=== PATIENT | male | born 1950 | race Caucasian/White ===

== ENCOUNTER 2021-03-12 02:43 | Emergency (ER) | payer MEDICARE, OTHER ==
[~2021-03-12] VITALS: Ht 182.8 cm; Wt 84.3 kg
--- NOTE | 2021-03-12 02:56 | ED EENT ---
History of Present Illness General Chief Complaint: Nasal Problems Stated Complaint: NOSE BLEED History of Present Illness Date Seen by Provider: Mar 12, 2021 Time Seen by Provider: 02:52 Initial Comments 70-year-old male presents with a nosebleed out of the left nare. Started approximately 20 minutes prior to arrival. Patient is not on any blood thinners. Patient does drink alcohol daily. Patient has been unable to get it to stop Allergies and Home Medications Allergies Coded Allergies: No Known Drug Allergies (Unverified , 03/12/21) Patient Home Medication List Home Medication List Reviewed: Yes Review of Systems Review of Systems Constitutional: no symptoms reported Eyes: No Symptoms Reported Nose: see HPI, epistaxis Mouth: no symptoms reported Throat: no symptoms reported Respiratory: no symptoms reported Cardiovascular: no symptoms reported Gastrointestinal: no symptoms reported Musculoskeletal: no symptoms reported Physical Exam Vital Signs Vital Signs - First Documented 03/12/21 02:50 Temp 35.8 Pulse 110 Resp 24 B/P (MAP) 170/100 (123) Pulse Ox 96 O2 Delivery Room Air Height, Weight, BMI Height: '" Weight: lbs. oz. kg; BMI Method: General Appearance: WD/WN, mild distress Nose: active bleeding (Left nare) Cardiovascular: normal peripheral pulses, regular rate, rhythm Respiratory: no respiratory distress, no accessory muscle use; No respiratory distress Gastrointestinal: non tender, soft Neurologic/Psychiatric: alert, normal mood/affect, oriented x 3 Skin: normal color, warm/dry Procedures/Interventions Nasal : Nasal Location: Left Nasal Drops Instilled: Afrin Nasal Procedures: Rapid Rhino Progress pt tolerated with no immediate complications Progress/Results/Core Measures Results/Orders My Orders Orders - SITA JIMÉNEZ DO Oxymetazoline 0.05% Nasal [place] (Afrin 0. (03/12/21 09:00) Oxymetazoline 0.05% Nasal [place] (Afrin 0. (03/12/21 03:01) Vital Signs/I&O 03/12/21 03/12/21 02:50 04:26 Temp 35.8 35.8 Pulse 110 96 Resp 24 16 B/P (MAP) 170/100 (123) 178/86 Pulse Ox 96 96 O2 Delivery Room Air Room Air Progress Progress Note : Progress Note Initially tried direct pressure and Afrin. Patient would have temporary ceasing of his epistasis. However with much movement or throat clearing it would restart. A Rhino Rocket was then placed. He should return to the ER on Saturday or follow-up with a primary care provider on Saturday to have the Rhino Rocket removed. Patient was stable upon discharge Departure Impression Primary Impression: Epistaxis Disposition: 01 HOME, SELF-CARE Condition: Stable Departure-Patient Inst. Referrals: NO,LOCAL PHYSICIAN (PCP/Family) Primary Care Physician Patient Instructions: Nosebleeds (DC) SITA JIMÉNEZ DO Mar 12, 2021 02:56
[2021-03-12] MEDS ORDERED: OXYMETAZOLINE (AFRIN) 0.05% NA 30 ML BTL ONE (03:01)
[2021-03-12 04:26] VITALS: BP 178/86
[2021-03-12] MEDS ORDERED: OXYMETAZOLINE (AFRIN) 0.05% NA 30 ML BTL SCH (09:00)
== END 2021-03-12 04:26 | disposition home or self-care (01) ==
LOC: ER FS 02:47
DX: R04.0 Epistaxis (principal)
CPT/HCPCS: 30901

== ENCOUNTER 2021-03-14 13:33 | Day surgery (SDC) | payer MEDICARE, OTHER ==
[2021-03-14] VITALS (7 sets, daily range): BP systolic 129–178; BP diastolic 72–97
[~2021-03-14] VITALS: Ht 182.9 cm; Wt 84.4 kg
[2021-03-14] MEDS ORDERED: LISI20TA26 PO (14:12)
[2021-03-14] MEDS ORDERED: HYDR12.56 PO (14:12)
[2021-03-14] MEDS ORDERED: DOXY50CA2 PO (14:12)
[2021-03-14 14:14] LABS: BASOPHILS % (AUTO) 1 % (0-10); EOSINOPHILS # (AUTO) 0.1 10^3/uL (0.0-0.3); EOSINOPHILS % (AUTO) 2 % (0-10); HEMATOCRIT 45 % (40-54); HEMOGLOBIN 15.4 g/dL (13.3-17.7); LYMPHOCYTES # (AUTO) 1.4 10^3/uL (1.0-4.0); LYMPHOCYTES % (AUTO) 16 % (12-44); MEAN CORPUSCULAR HEMOGLOBIN 34 pg (25-34); MEAN CORPUSCULAR HGB CONC 35 g/dL (32-36); MEAN CORPUSCULAR VOLUME 99 fL (80-99); MEAN PLATELET VOLUME 10.5 fL (9.0-12.2); MONOCYTES # (AUTO) 0.8 10^3/uL (0.0-1.0); MONOCYTES % (AUTO) 9 % (0-12); NEUTROPHILS # (AUTO) 6.2 10^3/uL (1.8-7.8); NEUTROPHILS % (AUTO) 72 % (42-75); PLATELET COUNT 219 10^3/uL (130-400); WHITE BLOOD COUNT 8.6 10^3/uL (4.3-11.0)
[2021-03-14 14:30] LABS: CALCIUM 9.8 MG/DL (8.5-10.1); CREATININE SERUM 1.44 MG/DL (0.60-1.30); POTASSIUM 4.1 MMOL/L (3.6-5.0)
[2021-03-14] MEDS ORDERED: fentaNYL INJ 100 MCG/2 ML AMP ONE (15:30)
[2021-03-14] MEDS ORDERED: proPOfol 200 MG/20 ML (DIPRIVAN) VIAL IV ONE (15:30)
[2021-03-14] MEDS ORDERED: ROCURONIUM 10 MG/ML 5 ML SYRINGE IV ONE (15:30)
[2021-03-14] MEDS ORDERED: SUCCINYLCHOLINE INJ 100 MG/5 ML SYR/VIAL ONE (15:30)
[2021-03-14] MEDS ORDERED: LIDOCAINE PF 2% 5 ML (XYLOCAINE) VIAL ONE (15:30)
[2021-03-14] MEDS ORDERED: ONDANSETRON 4 MG/2 ML (SDV) Z0FRAN ONE ×2 (15:30→17:49)
[2021-03-14] MEDS ORDERED: MIDAZOLAM 2 MG/2 ML (VERSED) VIAL ONE (15:31)
[2021-03-14] MEDS ORDERED: COCAINE HCL 4% 2 ML SYR ONE (15:38)
[2021-03-14] MEDS ORDERED: MUPIROCIN 2% OINT 22 GM (BACTROBAN) TUBE ONE (15:39)
[2021-03-14] MEDS ORDERED: LIDOCAINE/EPI 1%-1:100,000 (XYLOCAINE) 20ML ONE (15:39)
[2021-03-14] MEDS ORDERED: PHENYLEPHRINE 0.5% NASAL SPR (NEO-SYNEPHRINE) REG ONE (15:39)
[2021-03-14] MEDS ORDERED: LACTATED RINGERS 1,000 ML IV PRN (16:00)
--- NOTE | 2021-03-14 17:05 | Progress Note-Pre Operative ---
Pre-Operative Progress Note H&P Reviewed The H&P was reviewed, patient examined and no changes noted. Date Seen by Provider: Mar 14, 2021 Time Seen by Provider: 17:00 Date H&P Reviewed: Mar 14, 2021 Time H&P Reviewed: 17:00 Pre-Operative Diagnosis: Left Posterior Epistaxis HUNG SHEPHERD MD Mar 14, 2021 17:05
[2021-03-14] MEDS ORDERED: morphine INJ 10 MG/ML 1ML (SYR OR VIAL) ONE (17:49)
[2021-03-14] MEDS ORDERED: HYDROmorphone 2 MG/ML VIAL (DILAUDID) ONE (17:49)
[2021-03-14] MEDS ORDERED: PHENYLEPHRINE 100 MCG/ML 10 ML (ANESTHESIA) SYR ONE (18:06)
[2021-03-14] MEDS ORDERED: SEVOFLURANE (ULTANE) 15 ML INHAL SOLN ONE (18:16)
--- NOTE | 2021-03-14 18:33 | Anesthesia-General Post-Op ---
General Patient Condition Mental Status/LOC: Same as Preop Cardiovascular: Satisfactory Nausea/Vomiting: Absent Respiratory: Satisfactory Pain: Controlled Complications: Absent Post Op Complications Complications None Follow Up Care/Instructions Patient Instructions None needed. Anesthesia/Patient Condition Patient Condition Patient is doing well, no complaints, stable vital signs, no apparent adverse anesthesia problems. No complications reported per nursing. LUIS MANUEL WATKINS CRNA Mar 14, 2021 18:33
[2021-03-14] MEDS ORDERED: MEPERIDINE (DEMEROL) INJ 50 MG/ML IVP ONE (18:45)
[2021-03-14] MEDS ORDERED: D5 1/2 NS W/KCL 20 MEQ/L 1,000 ML IV SCH (18:45)
[2021-03-14] MEDS ORDERED: morphine INJ 10 MG/ML 1ML (SYR OR VIAL) IVP ONE (18:45)
[2021-03-14] MEDS ORDERED: PROMETHAZINE INJ 25 MG/ML (PHENERGAN) AMP IVP ONE (18:45)
[2021-03-14] MEDS ORDERED: HYDROmorphone 2 MG/ML VIAL (DILAUDID) IV ONE (18:45)
[2021-03-14] MEDS ORDERED: ONDANSETRON 4 MG/2 ML (SDV) Z0FRAN IVP PRN (18:45)
[2021-03-14] MEDS ORDERED: PHENYLEPHRINE 0.5% NASAL SPR (NEO-SYNEPHRINE) REG PRN (18:45)
--- NOTE | 2021-03-14 18:45 | Progress Note-Post Operative ---
Post-Operative Progess Note Surgeon (s)/Hat Measurer (s) Surgeon HUNG SHEPHERD MD Hat Measurer n/a Pre-Operative Diagnosis Left Posterior Epistaxis Post-Operative Diagnosis same Post-Op Procedure Note Date of Procedure: Mar 14, 2021 Name of Procedure Performed: Endoscopic Repair of Left Posterior Epistaxis Description & Findings Description and Findings: n/a Anesthesia Type get Estimated Blood Loss minimal Packing none. Specimen(s) collected/removed none HUNG SHEPHERD MD Mar 14, 2021 18:45
[2021-03-14] MEDS ORDERED: HYDROcodone/APAP 5 MG/325 MG (LORTAB) TAB PO PRN (19:00)
== END 2021-03-14 21:03 | disposition home or self-care (01) ==
LOC: SDC 13:33
PROVIDERS: ATTEND Otolaryngology Otolaryngology/Facial Plastic Surgery
DX: R04.0 Epistaxis (principal)
CPT/HCPCS: 36415; 80048; 85025; 87081; 87636

== ENCOUNTER 2021-03-15 03:22 | Day surgery (SDC) | payer MEDICARE, OTHER ==
[2021-03-15] VITALS (12 sets, daily range): BP systolic 139–178; BP diastolic 73–85
[~2021-03-15] VITALS: Ht 182.9 cm; Wt 80.7 kg
[~2021-03-15 03:22] MED LIST: DOXY50CA2 PO; HYDR12.56 PO; LISI20TA26 PO
[2021-03-15] MEDS ORDERED: CATHETER FLUSH 10 ML SYR IV PRN (05:00)
[2021-03-15] MEDS ORDERED: HYDROcodone/APAP 5 MG/325 MG (LORTAB) TAB PO PRN (05:15)
[2021-03-15] MEDS ORDERED: SALINE NASAL SPRAY (OCEAN) 45 ML BTL PRN (05:15)
[2021-03-15] MEDS ORDERED: PATIENT MAY USE OWN MEDS, ALL MC SCH (05:15)
[2021-03-15] MEDS ORDERED: ACETAMINOPHEN 325 MG TABLET PO PRN (05:15)
[2021-03-15] MEDS: CATHETER FLUSH 10 ML SYR IV SCH ×3 (05:20→20:00)
[2021-03-15] MEDS ORDERED: COCAINE HCL 4% 2 ML SYR ONE (07:02)
[2021-03-15] MEDS ORDERED: PHENYLEPHRINE 0.5% NASAL SPR (NEO-SYNEPHRINE) REG ONE (07:03)
[2021-03-15] MEDS ORDERED: MUPIROCIN 2% OINT 22 GM (BACTROBAN) TUBE ONE (07:03)
[2021-03-15] MEDS ORDERED: LIDOCAINE/EPI 1%-1:100,000 (XYLOCAINE) 20ML ONE (07:03)
[2021-03-15] MEDS ORDERED: SEVOFLURANE (ULTANE) 15 ML INHAL SOLN ONE ×2 (07:13→07:48)
[2021-03-15] MEDS ORDERED: MIDAZOLAM 2 MG/2 ML (VERSED) VIAL ONE (07:13)
[2021-03-15] MEDS ORDERED: proPOfol 200 MG/20 ML (DIPRIVAN) VIAL IV ONE (07:13)
[2021-03-15] MEDS ORDERED: LIDOCAINE PF 2% 5 ML (XYLOCAINE) VIAL ONE (07:13)
[2021-03-15] MEDS ORDERED: ONDANSETRON 4 MG/2 ML (SDV) Z0FRAN ONE (07:13)
[2021-03-15] MEDS ORDERED: fentaNYL INJ 100 MCG/2 ML AMP ONE (07:13)
--- NOTE | 2021-03-15 07:19 | Progress Note ---
Standard Progress Note Progress Notes/Assess & Plan Date Seen by a Provider: Mar 15, 2021 Time Seen by a Provider: 06:30 Progress/Assessment & Plan ENT-Rudi called to see patient had onset of bleeding around 620-birght red blood from high in the nose Nose-suctioned of clot and bright red blood-active bleeding seen high in the nose just anterior to the middle turbinate-hard to see in that area as he has a narrow nose- IMP: Recurrent Epistaxis Rec: 1. Patient has active bleeding. Only alternative is to take back to surgery whicle acitvely bleeding so hopefully can find the vessels to cauterize. OR has room availabel and will get him down as soon as possible whicle still bleeding 2. consent for repair of left epistaxis Final Diagnosis REcurrent Left Epistaxis HUNG SHEPHERD MD Mar 15, 2021 07:19
[2021-03-15] MEDS: LACTATED RINGERS 1,000 ML IV PRN ×2 (07:25→07:54)
[2021-03-15] MEDS ORDERED: ceFAZolin INJECTION 1,000 MG ONE (08:05)
[2021-03-15] MEDS ORDERED: PHENYLEPHRINE 100 MCG/ML 10 ML (ANESTHESIA) SYR ONE (08:10)
[2021-03-15] MEDS ORDERED: SUCCINYLCHOLINE INJ 100 MG/5 ML SYR/VIAL ONE (08:23)
[2021-03-15] MEDS ORDERED: morphine INJ 10 MG/ML 1ML (SYR OR VIAL) ONE (08:27)
[2021-03-15] MEDS ORDERED: MEPERIDINE (DEMEROL) INJ 50 MG/ML IVP ONE (08:30)
[2021-03-15] MEDS ORDERED: morphine INJ 10 MG/ML 1ML (SYR OR VIAL) IVP ONE (08:30)
[2021-03-15] MEDS ORDERED: fentaNYL INJ 100 MCG/2 ML AMP IVP ONE (08:30)
[2021-03-15] MEDS ORDERED: ONDANSETRON 4 MG/2 ML (SDV) Z0FRAN IVP PRN (08:30)
[2021-03-15] MEDS ORDERED: PHENYLEPHRINE 0.5% NASAL SPR (NEO-SYNEPHRINE) REG PRN (10:30)
[2021-03-15] MEDS: CEPHALEXIN 250 MG (KEFLEX) CAP PO SCH ×3 (11:37→19:59)
[2021-03-16 04:00] VITALS: BP 170/87
[2021-03-16] MEDS: CATHETER FLUSH 10 ML SYR IV SCH (06:49)
--- NOTE | 2021-03-16 06:55 | Progress Note ---
Standard Progress Note Progress Notes/Assess & Plan Date Seen by a Provider: Mar 16, 2021 Time Seen by a Provider: 06:30 Progress/Assessment & Plan ENT-Rudi called to see patient had onset of bleeding around 620-birght red blood from high in the nose Nose-suctioned of clot and bright red blood-active bleeding seen high in the nose just anterior to the middle turbinate-hard to see in that area as he has a narrow nose- IMP: Recurrent Epistaxis Rec: 1. Patient has active bleeding. Only alternative is to take back to surgery whicle acitvely bleeding so hopefully can find the vessels to cauterize. OR has room availabel and will get him down as soon as possible whicle still bleeding 2. consent for repair of left epistaxis 03/16-630 am patient doing well-no significnt bleeding since surgery gordon diet well mild to mod discomfort Nose-packing intact- op-no new or old blood seen will discharge around noon epistaxis discharge instructions patient already has prescriptions at home rtc-2 weeks in [facility] actvity restrictions discussed Final Diagnosis Recurrent Epistaxis HUNG SHEPHERD MD Mar 16, 2021 06:55
[2021-03-16 07:51] VITALS: BP 159/72
[2021-03-16] MEDS: CEPHALEXIN 250 MG (KEFLEX) CAP PO SCH (08:18)
[2021-03-16 12:20] VITALS: BP 159/72
--- NOTE | 2021-03-16 14:31 | Anesthesia-General Post-Op ---
General Patient Condition Mental Status/LOC: Same as Preop Cardiovascular: Satisfactory Nausea/Vomiting: Absent Respiratory: Satisfactory Pain: Controlled Complications: Absent Post Op Complications Complications None Follow Up Care/Instructions Patient Instructions None needed. Anesthesia/Patient Condition Patient Condition Patient is doing well, no complaints, stable vital signs, no apparent adverse anesthesia problems. No complications reported per nursing. JOSE DAVID SUMMERS CRNA Mar 16, 2021 14:31
== END 2021-03-16 12:40 | disposition other institution (70) ==
LOC: EDUNIT# 03:22 → ER 03:25 → UNDOADMIN 04:09 → INTOOBSV 04:09 → CSD 04:09 → SDC 04:09 → 4TH 04:09 → CSD 04:17 → 4TH 10:33 → CSD 10:33 → 4TH 10:33 → SDC 03-16 12:40 → UNDODISIN 03-16 12:40
PROVIDERS: ATTEND Otolaryngology Otolaryngology/Facial Plastic Surgery
DX: R04.0 Epistaxis (principal); I10 Essential (primary) hypertension; E11.9 Type 2 diabetes mellitus without complications; Z87.891 Personal history of nicotine dependence; Z79.899 Other long term (current) drug therapy; Z79.2 Long term (current) use of antibiotics
CPT/HCPCS: 93005

== ENCOUNTER → 2021-07-20 | Outpatient (CLI) | payer MEDICARE, OTHER ==
--- NOTE | 2021-07-20 09:58 | Diagnostic Imaging Report ---
INDICATION: Cough and congestion. TIME OF EXAM: 9:48 AM COMPARISON: No prior studies are available for comparison. FINDINGS: The heart size is normal. The lungs appear clear although there is a small nodule in the right base which appears to be fairly dense. This could be calcified. No infiltrates are detected. There is no effusion or pneumothorax IMPRESSION: Right basilar nodule, indeterminate. Correlation with prior chest radiographs would be recommended to confirm stability. If no prior chest radiographs are available, CT of the chest could be performed for further evaluation. Dictated by: Dictated on workstation # [id number]
== END ==
LOC: RAD FS 09:35
PROVIDERS: ATTEND Registered Nurse Emergency
DX: R91.1 Solitary pulmonary nodule (principal); R05.1 Acute cough; R09.81 Nasal congestion
CPT/HCPCS: 71046

== ENCOUNTER → 2021-07-24 | Outpatient (CLI) | payer MEDICARE, OTHER ==
[~2021-07-24] MED LIST changes: +CATHETER FLUSH 10 ML SYR IV PRN; +HOLD METFORMIN - RECEIVED CONTRAST 20 ML VIAL IV SCH; +IOHEXOL 350 MG/ML 150 ML (OMNIPAQUE 350) VIAL IV ONE; +NS 100 ML (IVPB) BAG IV ONE
[2021-07-24 09:23] LABS: CREATININE SERUM 1.06 MG/DL (0.60-1.30)
--- NOTE | 2021-07-24 10:22 | Diagnostic Imaging Report ---
PROCEDURE: CT chest with contrast only. TECHNIQUE: Multiple contiguous axial images were obtained through the chest after administration of intravenous contrast. Auto Exposure Controls were utilized during the CT exam to meet ALARA standards for radiation dose reduction. DATE: July 24, 2021. COMPARISON: July 20, 2021. INDICATION: 70-year-old male, evaluation of pulmonary nodule seen on radiographs. FINDINGS: There are mild upper lobe findings of emphysema. There is mild pleural parenchymal scarring in the lung apices. There is a calcified 6 mm right lower lobe granuloma on axial image 121 accounting for the nodule seen on radiographs. There are calcified right hilar lymph nodes consistent with sequela of prior granulomatous disease. There are very mild tree-in-bud type nodularity opacities in the left upper lobe on axial image 75 and adjacent sequential images. There is additional tree-in-bud nodularity present in the left lower lobe. There is no pneumothorax. There is no pleural effusion. The heart is not enlarged. There is no pericardial effusion. There is a calcified subcarinal lymph node. There is no identified noncalcified mediastinal, hilar, or axillary lymph node meeting CT size criteria for adenopathy. There is a small to moderate-sized hiatal hernia. There is wall thickening of the distal esophagus. This is best demonstrated on axial image 121 and adjacent sequential images. Additional evaluation of the abdomen is unremarkable. There are atherosclerotic calcifications present. There are multilevel degenerative changes of the spine. There is no identified acute bony abnormality. IMPRESSION: CT CHEST. 1. Calcified right lower lobe pulmonary nodule as well as calcified lymph nodes consistent with sequela of prior granulomatous disease. 2. No concerning pulmonary nodule or lung mass. 3. Mild upper lobe findings of emphysema. 4. Small to moderate-sized hiatal hernia with nonspecific wall thickening of the distal esophagus. Further evaluation with upper endoscopy is recommended. Esophageal cancer is in the differential diagnosis. Dictated by: Dictated on workstation # [id number]
== END ==
LOC: LAB FS 08:39
PROVIDERS: ATTEND Registered Nurse Emergency
DX: R91.1 Solitary pulmonary nodule (principal)
CPT/HCPCS: 36415; 71260; 82565; 84520

== ENCOUNTER 2021-09-04 23:44 | Emergency (ER) | payer MEDICARE, OTHER ==
[~2021-09-04 23:44] MED LIST changes: -CATHETER FLUSH 10 ML SYR IV PRN; -HOLD METFORMIN - RECEIVED CONTRAST 20 ML VIAL IV SCH; -IOHEXOL 350 MG/ML 150 ML (OMNIPAQUE 350) VIAL IV ONE; -NS 100 ML (IVPB) BAG IV ONE
--- NOTE | 2021-09-04 23:56 | ED Abdominal Pain ---
General Chief Complaint: Abdominal/GI Problems Stated Complaint: STOMACH PAIN Source of Information: Patient Exam Limitations: No Limitations History of Present Illness Date Seen by Provider: Sep 04, 2021 Time Seen by Provider: 23:50 Initial Comments 71-year-old male with past medical history of hypertension coming in due to epigastric pain that is sharp, constant, moderate to severe, and has been going on for roughly 2 days. Has not had a bowel movement in 2 days which is unusual for him. Is passing flatus. Had a very brief episode of nausea earlier today but has not had vomiting, and currently is not nauseous. Has never had discomfort like this before. There is a baseline level of pain and there are waves of more severe pain that lasts a couple minutes at a time. He says he does deal with burning pain that is more like GERD at times, but this feels somewhat different. Has had hernia repair prior but that is the only abdominal surgery in the past. He notes that he had bronchitis relatively recently within the past couple months and had a chest x-ray which showed a pulmonary nodule in his right lung. This prompted a CT scan which showed some esophageal thickening in his lower esophagus and a hiatal hernia. He says this is prompted that he has a an upper GI scope coming up soon. He tried Pepcid earlier which did not really change the pain at all. He says he came in because he was unable to fall asleep. Allergies and Home Medications Allergies Coded Allergies: No Known Drug Allergies (Unverified , 03/12/21) Patient Home Medication List Home Medication List Reviewed: Yes Doxycycline Hyclate (Doxycycline Hyclate) 50 Mg Capsule, 50 MG PO TOPEKA, (Reported) Entered as Reported by: CORRINE CHAN on 03/14/21 141 Hydrochlorothiazide (Hydrochlorothiazide) 12.5 Mg Tablet, 12.5 MG PO DAILY, (Reported) Entered as Reported by: CORRINE CHAN on 03/14/21 141 Lisinopril (Lisinopril) 20 Mg Tablet, 20 MG PO DAILY, (Reported) Entered as Reported by: CORRINE CHAN on 03/14/21 141 Pantoprazole Sodium (Pantoprazole Sodium) 40 Mg Tablet., 40 MG PO DAILY Prescribed by: VIVIAN LEE on 09/05/21 0116 Review of Systems Review of Systems Constitutional: No chills, No fever EENTM: No Blurred Vision Respiratory: Denies Cough, Denies Shortness of Air Cardiovascular: Denies Chest Pain Gastrointestinal: Abdominal Pain, Constipated; Denies Diarrhea, Denies Nausea, Denies Vomiting Genitourinary: No Symptoms Reported Musculoskeletal: no symptoms reported Skin: no symptoms reported Psychiatric/Neurological: No Symptoms Reported Endocrine: No Symptoms Reported Hematologic/Lymphatic: No Symptoms Reported All Other Systems Reviewed Negative Unless Noted: Yes Past Onemoyb-Gbkcph-Rugglb Hx Patient Social History Tobacco Use?: No Substance use?: No Alcohol Use?: Yes Immunizations Up To Date First/Initial COVID19 Vaccinat: 08/14/2020 Second COVID19 Vaccination Migel: 09/11/2020 Third COVID19 Vaccination Date: 08/14/2020 Seasonal Allergies Seasonal Allergies: No Past Medical History Surgery/Hospitalization HX: EPISTAXIS REPAIR 03/14/21 Surgeries: Yes (COLONOSCOPY, WISDOM TEETH) Abdominal Respiratory: No Currently Using CPAP: No Currently Using BIPAP: No Cardiac: Yes High Cholesterol, Hypertension Neurological: No Genitourinary: No Gastrointestinal: No Musculoskeletal: No Endocrine: No HEENT: No Cancer: No Psychosocial: No Integumentary: No Blood Disorders: No Adverse Reaction/Blood Tranf: No Physical Exam Vital Signs Vital Signs - First Documented 09/04/21 23:48 Temp 36.2 Pulse 76 Resp 18 B/P (MAP) 148/86 (106) Pulse Ox 97 O2 Delivery Room Air Capillary Refill : Height/Weight/BMI Height: '" Weight: lbs. oz. kg; 24.12 BMI Method: General Appearance: WD/WN, no apparent distress HEENT: PERRL/EOMI, normal ENT inspection, pharynx normal Neck: non-tender, full range of motion, supple, normal inspection Respiratory: chest non-tender, lungs clear, normal breath sounds, no respiratory distress, no accessory muscle use Cardiovascular: regular rate, rhythm, no edema, no murmur Gastrointestinal: normal bowel sounds, soft; No distended, No guarding, No rebound; tenderness (Mild epigastric tenderness) Extremities: normal range of motion, non-tender, normal inspection, no pedal edema, no calf tenderness, normal capillary refill Neurologic/Psychiatric: no motor/sensory deficits, alert, normal mood/affect Skin: normal color, warm/dry Lymphatic: no adenopathy Focused Exam Lactate Level 09/05/21 00:15: Lactic Acid Level 0.95 Lactic Acid Level Laboratory Tests Test 09/05/21 00:15 Lactic Acid Level 0.95 MMOL/L (0.50-2.00) Progress/Results/Core Measures Results/Orders Lab Results Laboratory Tests Test 09/05/21 00:15 Range/Units White Blood Count 9.7 4.3-11.0 10^3/uL Red Blood Count 4.80 4.30-5.52 10^6/uL Hemoglobin 15.7 13.3-17.7 g/dL Hematocrit 44 40-54 % Mean Corpuscular Volume 92 80-99 fL Mean Corpuscular Hemoglobin 33 25-34 pg Mean Corpuscular Hemoglobin Concent 35 32-36 g/dL Red Cell Distribution Width 13.3 10.0-14.5 % Platelet Count 184 130-400 10^3/uL Mean Platelet Volume 10.8 9.0-12.2 fL Immature Granulocyte % (Auto) 1 % Neutrophils (%) (Auto) 81 H 42-75 % Lymphocytes (%) (Auto) 10 L 12-44 % Monocytes (%) (Auto) 8 0-12 % Eosinophils (%) (Auto) 1 0-10 % Basophils (%) (Auto) 0 0-10 % Neutrophils # (Auto) 7.9 H 1.8-7.8 10^3/uL Lymphocytes # (Auto) 0.9 L 1.0-4.0 10^3/uL Monocytes # (Auto) 0.8 0.0-1.0 10^3/uL Eosinophils # (Auto) 0.1 0.0-0.3 10^3/uL Basophils # (Auto) 0.0 0.0-0.1 10^3/uL Immature Granulocyte # (Auto) 0.1 0.0-0.1 10^3/uL Prothrombin Time 13.3 12.2-14.7 SEC INR Comment 1.0 0.8-1.4 Activated Partial Thromboplast Time 44 H 24-35 SEC Sodium Level 131 L 135-145 MMOL/L Potassium Level 4.4 3.6-5.0 MMOL/L Chloride Level 97 L 98-107 MMOL/L Carbon Dioxide Level 21 21-32 MMOL/L Anion Gap 13 5-14 MMOL/L Blood Urea Nitrogen 26 H 7-18 MG/DL Creatinine 1.28 0.60-1.30 MG/DL Estimat Glomerular Filtration Rate 59 BUN/Creatinine Ratio 20 Glucose Level 196 H 70-105 MG/DL Lactic Acid Level 0.95 0.50-2.00 MMOL/L Calcium Level 9.3 8.5-10.1 MG/DL Corrected Calcium 9.1 8.5-10.1 MG/DL Magnesium Level 2.0 1.6-2.4 MG/DL Total Bilirubin 1.2 H 0.1-1.0 MG/DL Aspartate Amino Transf (AST/SGOT) 15 5-34 U/L Alanine Aminotransferase (ALT/SGPT) 15 0-55 U/L Alkaline Phosphatase 103 40-136 U/L Troponin I < 0.30 <0.30 NG/ML Total Protein 7.1 6.4-8.2 GM/DL Albumin 4.3 3.2-4.5 GM/DL Lipase 33 8-78 U/L My Orders Orders - VIVIAN LEE MD Cbc With Automated Diff (09/05/21 00:06) Comprehensive Metabolic Panel (09/05/21 00:06) Lactic Acid Analyzer (09/05/21 00:06) Lipase (09/05/21 00:06) Magnesium (09/05/21 00:06) Protime With Inr (09/05/21 00:06) Partial Thromboplastin Time (09/05/21 00:06) Troponin I Fs (09/05/21 00:06) Lidocaine 2% Viscous 15 Ml (Xylocaine Vi (09/05/21 00:15) Antacid Suspension (Mylanta Suspension (09/05/21 00:15) Famotidine Injection (Pepcid Injection) (09/05/21 00:06) Hyoscyamine Sl Tablet (Levsin Sl Tablet) (09/05/21 00:15) Ed Iv/Invasive Line Start (09/05/21 00:06) Ketorolac Injection (Toradol Injection) (09/05/21 01:00) Ct Abdomen/Pelvis W (09/05/21 00:58) Iohexol Injection (Omnipaque 350 Mg/Ml 1 (09/05/21 01:00) Received Contrast (Hold Metformin- Contr (09/05/21 01:00) Ns (Ivpb) (Sodium Chloride 0.9% Ivpb Bag (09/05/21 01:00) Medications Given in ED Current Medications Medications Dose Ordered Sig/Ramon Route Start Time Stop Time Status Last Admin Dose Admin Al Hydrox/Mg Hydrox/Simethicone 30 ml ONCE ONCE PO 09/05/21 00:15 09/05/21 00:16 DC 09/05/21 00:14 30 ML Hyoscyamine Sulfate 0.125 mg ONCE ONCE SL 09/05/21 00:15 09/05/21 00:16 DC 09/05/21 00:15 0.125 MG Iohexol 100 ml ONCE ONCE IV 09/05/21 01:00 09/05/21 01:01 DC 09/05/21 01:13 100 ML Lidocaine HCl 15 ml ONCE ONCE PO 09/05/21 00:15 09/05/21 00:16 DC 09/05/21 00:14 15 ML Sodium Chloride 100 ml ONCE ONCE IV 09/05/21 01:00 09/05/21 01:01 DC 09/05/21 01:14 100 ML Vital Signs/I&O 09/04/21 23:48 Temp 36.2 Pulse 76 Resp 18 B/P (MAP) 148/86 (106) Pulse Ox 97 O2 Delivery Room Air Progress Progress Note : Progress Note 71-year-old male with above history coming in due to epigastric pain. ABCs were intact and vitals were stable on presentation. Physical exam with some mild epigastric tenderness with deep palpation, but no signs of peritonitis. An IV was placed and basic labs were obtained including LFTs and lactic acid. Labs significant for normal white blood cell count, normal creatinine, normal electrolytes, normal LFTs other than a very slightly elevated bilirubin which is nonspecific, normal lactic acid making mesenteric ischemia less likely. Lipase is also normal making pancreatitis unlikely. On reassessment after the GI cocktail his pain has almost completely resolved which is reassuring. I discussed with the patient at his age having severe new abdominal pain is still a concern to me, and very well could just be esophagitis/gastritis, but that I would like to do advanced imaging to rule out other pathologies. CT abdomen pelvis ordered and does not have any new acute findings that would be concerning for his symptoms. I believe the patient is stable for discharge with outpatient follow-up. He does have an upper GI scope scheduled in less than a month which is reassuring. He was sent home with strict return precautions. Departure Impression Primary Impression: Epigastric abdominal pain Disposition: HOME, SELF-CARE Condition: Stable Departure-Patient Inst. Decision time for Depature: 02:14 Referrals: MARIO DEGROOT MD (PCP/Family) Primary Care Physician Patient Instructions: Severe Abdominal Pain, Adult (DC), Constipation, Adult (DC) Add. Discharge Instructions: I will start you on pantoprazole which is a strong antacid which can help with symptoms that you are experiencing. Try to take it for at least 2 weeks to see if you have improvement in your symptoms. If you have continued constipation yo u can try adding in MiraLAX which you can buy [id number]. When you having severe episodes of pain you can try taking Maalox max which is also [id number] and give that about an hour to do its job. Tylenol is a safe medication that causes less GI upset, ibuprofen, naproxen, aspirin can cause GI upset. Call your doctor if things are not significantly better in the next couple of days. Scripts Pantoprazole Sodium (Pantoprazole Sodium) 40 Mg Tablet. 40 MG PO DAILY for 30 Days, #30 TAB Prov: VIVIAN LEE MD 09/05/21 VIVIAN LEE MD Sep 04, 2021 23:56
[2021-09-05] MEDS ORDERED: FAMOTIDINE 20MG/2ML IV (PEPCID) IV STA (00:06)
[2021-09-05] MEDS ORDERED: LIDOCAINE 2% VISCOUS 15 ML UDC PO ONE (00:15)
[2021-09-05] MEDS ORDERED: HYOSCYAMINE 0.125 MG (LEVSIN) TAB SL ONE (00:15)
[2021-09-05] MEDS ORDERED: ANTACID SUSP 30 ML UDC (MYLANTA) PO ONE (00:15)
[2021-09-05 00:24] LABS: BASOPHILS % (AUTO) 0 % (0-10); EOSINOPHILS # (AUTO) 0.1 10^3/uL (0.0-0.3); EOSINOPHILS % (AUTO) 1 % (0-10); HEMATOCRIT 44 % (40-54); HEMOGLOBIN 15.7 g/dL (13.3-17.7); LYMPHOCYTES # (AUTO) 0.9 10^3/uL (1.0-4.0); LYMPHOCYTES % (AUTO) 10 % (12-44); MEAN CORPUSCULAR HEMOGLOBIN 33 pg (25-34); MEAN CORPUSCULAR HGB CONC 35 g/dL (32-36); MEAN CORPUSCULAR VOLUME 92 fL (80-99); MEAN PLATELET VOLUME 10.8 fL (9.0-12.2); MONOCYTES # (AUTO) 0.8 10^3/uL (0.0-1.0); MONOCYTES % (AUTO) 8 % (0-12); NEUTROPHILS # (AUTO) 7.9 10^3/uL (1.8-7.8); NEUTROPHILS % (AUTO) 81 % (42-75); PLATELET COUNT 184 10^3/uL (130-400); WHITE BLOOD COUNT 9.7 10^3/uL (4.3-11.0)
[2021-09-05 00:33] LABS: PROTHROMBIN TIME PATIENT 13.3 SEC (12.2-14.7)
[2021-09-05 00:51] LABS: ALANINE AMINOTRANSFERASE 15 U/L (0-55); ALKALINE PHOSPHATASE 103 U/L (40-136); BILIRUBIN,TOTAL 1.2 MG/DL (0.1-1.0); BUN/CREATININE RATIO 20; CALCIUM 9.3 MG/DL (8.5-10.1); CARBON DIOXIDE 21 MMOL/L (21-32); CHLORIDE 97 MMOL/L (98-107); CREATININE SERUM 1.28 MG/DL (0.60-1.30); GFR ESTIMATED 59; GLUCOSE 196 MG/DL (70-105); POTASSIUM 4.4 MMOL/L (3.6-5.0); SODIUM 131 MMOL/L (135-145)
[2021-09-05 00:52] LABS: ALBUMIN 4.3 GM/DL (3.2-4.5); LIPASE 33 U/L (8-78); TOTAL PROTEIN 7.1 GM/DL (6.4-8.2)
[2021-09-05] MEDS ORDERED: IOHEXOL 350 MG/ML 100 ML (OMNIPAQUE 350) VIAL IV ONE (01:00)
[2021-09-05] MEDS ORDERED: NS 100 ML (IVPB) BAG IV ONE (01:00)
[2021-09-05] MEDS ORDERED: KETOROLAC 30 MG/ML VIAL IVP ONE (01:00)
[2021-09-05] MEDS ORDERED: HOLD METFORMIN - RECEIVED CONTRAST 20 ML VIAL IV SCH (01:00)
[2021-09-05] MEDS ORDERED: PANT40TA52 PO (01:16)
[2021-09-05 02:16] VITALS: BP 144/76
--- NOTE | 2021-09-05 07:24 | Diagnostic Imaging Report ---
PROCEDURE: CT abdomen and pelvis with contrast. TECHNIQUE: Multiple contiguous axial images were obtained through the abdomen and pelvis after administration of intravenous contrast. Auto Exposure Controls were utilized during the CT exam to meet ALARA standards for radiation dose reduction. All CT scans use one or more of the following dose optimizing techniques: automated exposure control, MA and/or KvP adjustment based on patient size and exam type or iterative reconstruction. INDICATION: Abdominal pain There are no prior CT abdomen/pelvis examinations available for comparison. There is diverticulosis of the sigmoid colon but there is no clear distortion of the pericolonic fat to suggest diverticulitis. There is no pelvic mass or free fluid collection noted. The prostate gland is prominent. The urinary bladder is grossly unremarkable. The appendix is not abnormally thickened. The liver, spleen, pancreas, adrenals, gallbladder, aorta and inferior vena cava and portal vein show no sign of an acute abnormality. The stomach is partially filled with fluid and difficult to assess. As noted on the previous CT chest exam of 07/24/2021 there is a moderate hiatal hernia with some thickening of the wall of the gastroesophageal junction. This may well be due to the hernia itself as opposed to neoplastic disease. If further study is desired however, then either endoscopy or an esophagram would be recommended. Calcified granuloma in the right lung base seen previously is again evident. The lung bases are otherwise clear. The bone windows show no sign of a fracture or destructive lesion. IMPRESSION: 1. There is diverticulosis of the sigmoid colon without evidence for acute diverticulitis. There is no acute abnormality of the abdomen or pelvis noted otherwise. 2. The moderate hiatal hernia seen previously is again evident. Additional considerations and recommendations as above. 3. I agree with the [facility] interpretation of this exam. Dictated by: Dictated on workstation # [id number]
== END 2021-09-05 02:26 | disposition home or self-care (01) ==
LOC: EDUNIT# 23:44 → ER FS 23:45
DX: R10.13 Epigastric pain (principal)
CPT/HCPCS: 36415; 74177; 80053; 83605; 83690; 83735; 84484; 85025; 85610; 85730; Q9967

== ENCOUNTER → 2021-11-13 | Outpatient (CLI) | payer MEDICARE ==
[~2021-11-13] MED LIST changes: +PANT40TA52 PO
== END ==
LOC: LABNPT 14:40
PROVIDERS: ATTEND Family Medicine
DX: Z20.822 Contact with and (suspected) exposure to COVID-19 (principal)
CPT/HCPCS: 87636

== ENCOUNTER → 2021-12-12 | Outpatient (CLI) | payer MEDICARE, OTHER | LOC: LAB FS 12:08 | PROVIDERS: ATTEND Family Medicine | DX: R19.7 Diarrhea, unspecified (principal) | CPT/HCPCS: 87015; 87045; 87046; 87899 ==

== ENCOUNTER 2023-03-25 01:42 | Inpatient (IN) | payer MEDICARE, OTHER ==
[~2023-03-25] VITALS: Ht 182.8 cm; Wt 83.9 kg
[2023-03-25] MEDS ORDERED: ASPIRIN 81 MG CHEWABLE TABLET PO ONE (01:45)
[2023-03-25] MEDS ORDERED: meTOprolol INJECTION 5 MG/5 ML VIAL IV STA (01:55)
[2023-03-25] MEDS ORDERED: HEParin 1000 UNIT/ML (10ML VIAL) FOR BOLUS IV ONE (01:55)
[2023-03-25] MEDS ORDERED: HEParin DRIP 25000 UNIT/500ML 500 ML IV ONE (02:00)
--- NOTE | 2023-03-25 02:04 | ED Chest Pain ---
General Stated Complaint: CHEST PAIN|SOB Source: patient History of Present Illness Date Seen by Provider: Mar 25, 2023 Time Seen by Provider: 01:43 Initial Comments 72-year-old male presenting with complaints of chest pain and shortness of breath that woke him up at midnight. He has been having similar pains in the last few months but usually goes away with rest. Tonight it came on while he was sleeping and has not improved any. He thought it might be related to hiatal hernia and has an appointment tomorrow with a farm mechanic apprentice. However with the symptoms not improving he came into the emergency department. He was having chest pain as well as shortness of breath. He does have a history of diabetes and hypertension. He denies having any prior cardiac event. He was having pain in the central chest and going into both shoulders and arms. He denied having a headache, nausea, vomiting, fever, chills. Timing/Duration: 1-3 hours Severity/Quality: moderate, pressure Location: substernal Radiation: shoulders Activities at Onset: sleep Prior CP/Workup: no prior cardiac workup Modifying Factors: worse with exercise ASA po ENTRY LEVEL RECEPTIONIST: No NTG SL ENTRY LEVEL RECEPTIONIST: No Associated Symptoms: No abdominal pain, No back pain, No diaphoresis, No dizziness, No edema, No fatigue, No fever/chills, No headache, No heartburn, No nausea/vomiting, No rash; shortness of breath; No swelling/lump in chest, No syncope, No weakness Allergies and Home Medications Allergies Coded Allergies: No Known Drug Allergies (Unverified , 03/12/21) Patient Home Medication List Home Medication List Reviewed: Yes Doxycycline Hyclate (Doxycycline Hyclate) 50 Mg Capsule, 50 MG PO SUN, (Reported) Entered as Reported by: CORRINE CHAN on 03/14/21 141 Hydrochlorothiazide (Hydrochlorothiazide) 12.5 Mg Tablet, 12.5 MG PO DAILY, (Reported) Entered as Reported by: CORRINE CHAN on 03/14/21 141 Lisinopril (Lisinopril) 20 Mg Tablet, 20 MG PO DAILY, (Reported) Entered as Reported by: CORRINE CHAN on 03/14/21 141 Pantoprazole Sodium (Pantoprazole Sodium) 40 Mg Tablet., 40 MG PO DAILY Prescribed by: VIVIAN LEE on 09/05/21 0116 Review of Systems Review of Systems Constitutional: no symptoms reported EENTM: No Symptoms Reported Respiratory: SOA With Exertion Cardiovascular: Chest Pain Gastrointestinal: No Symptoms Reported Genitourinary: No Symptoms Reported Musculoskeletal: no symptoms reported Skin: no symptoms reported Psychiatric/Neurological: No Symptoms Reported Past Llbnzos-Ruhyys-Grggqj Hx Patient Social History Tobacco Use?: No Smoking Status: Former Smoker Use of E-Cig and/or Vaping dev: No Substance use?: No Immunizations Up To Date First/Initial COVID19 Vaccinat: 08/14/2020 Second COVID19 Vaccination Migel: 09/11/2020 Third COVID19 Vaccination Date: 08/14/2020 Seasonal Allergies Seasonal Allergies: No Past Medical History Surgery/Hospitalization HX: EPISTAXIS REPAIR 03/14/21, Hiatal hernia, HTN, Diabetes, STEMI 25 Mar 2023 Surgeries: Yes (COLONOSCOPY, WISDOM TEETH) Abdominal Respiratory: No Currently Using CPAP: No Currently Using BIPAP: No Cardiac: Yes High Cholesterol, Hypertension Neurological: No Genitourinary: No Gastrointestinal: No Musculoskeletal: No Endocrine: No HEENT: No Cancer: No Psychosocial: No Integumentary: No Blood Disorders: No Adverse Reaction/Blood Tranf: No Physical Exam Vital Signs Capillary Refill : Height, Weight, BMI Height: '" Weight: lbs. oz. kg; 24.12 BMI Method: General Appearance: No Apparent Distress, WD/WN HEENT: PERRL/EOMI Respiratory: Chest Non Tender, Lungs Clear, Normal Breath Sounds, No Accessory Muscle Use, No Respiratory Distress Cardiovascular: Regular Rate, Rhythm, Normal Peripheral Pulses Gastrointestinal: Normal Bowel Sounds, No Pulsatile Mass, Non Tender, Soft Extremity: Normal Capillary Refill, Normal Inspection, No Pedal Edema Neurologic/Psychiatric: Alert, Oriented x3 Skin: Normal Color, Warm/Dry Critical Care Note Critical Care Total Time (minutes) 45 minutes Progress I spent at least 45 minutes of critical care time with the patient. Time excludes separately billable procedures. Time was spent obtaining history from the patient and spouse, ordering tests and reviewing results, ordering interventions and reviewing response, discussion with consultants, documentation in the chart. The patient was at risk of cardiac collapse with findings of an acute coronary syndrome and STEMI. He required my direct and immediate intervention and management to stabilize his condition and arrange for transfer to higher level of care and the [employer] School [employer]. Progress/Results/Core Measures Results/Orders Lab Results Laboratory Tests Test 03/25/23 02:00 Range/Units White Blood Count 7.8 4.3-11.0 10^3/uL Red Blood Count 5.01 4.30-5.52 10^6/uL Hemoglobin 16.4 13.3-17.7 g/dL Hematocrit 48 40-54 % Mean Corpuscular Volume 95 80-99 fL Mean Corpuscular Hemoglobin 33 25-34 pg Mean Corpuscular Hemoglobin Concent 34 32-36 g/dL Red Cell Distribution Width 13.3 10.0-14.5 % Platelet Count 203 130-400 10^3/uL Mean Platelet Volume 10.7 9.0-12.2 fL Immature Granulocyte % (Auto) 1 % Neutrophils (%) (Auto) 69 42-75 % Lymphocytes (%) (Auto) 18 12-44 % Monocytes (%) (Auto) 9 0-12 % Eosinophils (%) (Auto) 4 0-10 % Basophils (%) (Auto) 1 0-10 % Neutrophils # (Auto) 5.4 1.8-7.8 10^3/uL Lymphocytes # (Auto) 1.4 1.0-4.0 10^3/uL Monocytes # (Auto) 0.7 0.0-1.0 10^3/uL Eosinophils # (Auto) 0.3 0.0-0.3 10^3/uL Basophils # (Auto) 0.0 0.0-0.1 10^3/uL Immature Granulocyte # (Auto) 0.0 0.0-0.1 10^3/uL Prothrombin Time 13.1 12.2-14.7 SEC INR Comment 1.0 0.8-1.4 Activated Partial Thromboplast Time 43 H 24-35 SEC My Orders Orders - PAT AMIN MD Cbc And Automated Diff (03/25/23 01:45) Magnesium (03/25/23 01:45) Chest 1 View Ap/Pa Only (03/25/23 01:45) Ekg Tracing (03/25/23 01:45) Comprehensive Metabolic Panel (03/25/23 01:45) Protime With Inr (03/25/23 01:45) Partial Thromboplastin Time (03/25/23 01:45) O2 (03/25/23 01:45) Monitor-Rhythm Ecg Trace Only (03/25/23 01:45) Aspirin Chewable Tablet (Aspirin Chewabl (03/25/23 01:45) Ed Iv/Invasive Line Start (03/25/23 01:45) Lipase (03/25/23 01:45) Troponin I Fs (03/25/23 01:45) Probnp Fs (03/25/23 01:45) Heparin Drip 09164 Unit/500ml (Heparin (03/25/23 02:00) Heparin (Bolus Per Protocol) (Heparin (B (03/25/23 01:55) Ticagrelor Tablet (Brilinta Tablet) (03/25/23 02:05) Metoprolol Succinate (Xl) Tab (Metoprolo (03/25/23 02:05) Ekg Tracing (03/25/23 02:19) Medications Given in ED Current Medications Medications Dose Ordered Sig/Ramon Route Start Time Stop Time Status Last Admin Dose Admin Aspirin 324 mg ONCE ONCE PO 03/25/23 01:45 03/25/23 01:47 DC 03/25/23 02:09 324 MG Heparin Sodium (Porcine) HEPARIN BOLUS ACS PROTOC... 0155 ONCE IV 03/25/23 01:55 03/25/23 01:58 DC 03/25/23 02:10 5,000 UNIT Heparin Sodium/ Dextrose 500 ml @ 0 mls/hr Q0M ONCE IV 03/25/23 02:00 03/25/23 02:01 DC 03/25/23 02:14 20 MLS/HR Progress Progress Note : Progress Note Patient found to have ST elevation [place] on his electrocardiogram that was obtained shortly after arrival. He is rating his pain at a 4 out of 10. Ordered aspirin as well as metoprolol and will call Dr. Ernst with cardiology at [facility] for the STEMI since that is the closest heart center with the High School Band Director. Please set up peripheral IV access and send labs for complete blood count, comprehensive metabolic profile, magnesium, lipase, troponin, proBNP, coagulation factors. Order a heparin bolus and drip based off the acute coronary syndrome orders. [address] Ernst, on-call cushion padder at [facility]. [address] Dr. Blair called back and I discussed the patient's presentation and case with him. With him having ST elevation in leads V1 through V4. Rating pain 4 out of 10 and hypertensive 190/90. He requested Brilinta 180 mg p.o. as well as Toprol-XL 50 mg p.o. rather than give the 5 mg IV metoprolol. He was in agreement with the heparin per ACS protocol with the 5000 unit bolus and 1000 unit/h drip. He will notify the nursing electrical prospecting supervisor to call the High School Band Director in to the hospital for the patient. Will contact EMS to get him transferred emergently to the High School [employer] Director. 0207 MARCELA Adair the powerhouse laborer called to verify the patient information. He stated that the High School Band Director had been called in and should be available once the patient arrives. Initial ECG Impression Date: Mar 25, 2023 Initial ECG Impression Time: 01:50 Initial ECG Rate: 77 Initial ECG Rhythm: Normal Sinus Initial ECG Impression: Acute [place] Initial ECG Comparisson: Changed (03/14/2021) Comment Acute STEMI with ST elevation V1 through V4. Sinus rhythm with heart rate of 77 bpm. [place] interval 171 ms. QT interval 358 ms with a QTc interval 390 ms. This is a change from prior tracing on March 14, 2021 where he had sinus rhythm without ST elevation. EKG : EKG Time: 02:00 Rate: 85 Rhythm: Normal Sinus ECG Impression: Acute [place] Comment Sinus rhythm with heart rate of 85 bpm. [place] interval [address] elevation in leads V1 through V4 concerning for septal myocardial infarction. QT interval 348 ms with a QTc interval 390 ms. This appears similar to the tracing from 150 this morning. Diagnostic Imaging Diagonstic Imaging: Xray Plain Films/CT/US/NM/MRI: chest Comments On my personal interpretation and review of his 1 view chest x-ray I did not appreciate any acute infiltrate or effusion. Reviewed: Reviewed by Me Departure Communication (Admissions) Time/Spoke to Admitting Phy: 02:02 d/w Dr. Ernst about the patient. With him having ST elevation in V1 through V4 he was having a STEMI. He requested to give the patient a Toprol-XL 50 mg for his hypertension. Brilinta and started on a heparin drip with 5000 bolus of 1000 units/h Impression Primary Impression: STEMI (ST elevation myocardial infarction) Qualified Codes: I21.3 - ST elevation (STEMI) myocardial infarction of unspecified site Disposition: 30 STILL A PATIENT Condition: Critical Admissions Decision to Admit Reason: Admit from ER (General) Decision to Admit/Date: Mar 25, 2023 Time/Decision to Admit Time: 02:02 Departure-Patient Inst. Referrals: MARIO DEGROOT MD (PCP/Family) Primary Care Physician PAT AMIN MD Mar 25, 2023 02:04
[2023-03-25] MEDS ORDERED: TICAGRELOR 90 MG TABLET (BRILINTA) PO STA (02:05)
[2023-03-25 02:16] LABS: BASOPHILS % (AUTO) 1 % (0-10); EOSINOPHILS # (AUTO) 0.3 10^3/uL (0.0-0.3); EOSINOPHILS % (AUTO) 4 % (0-10); HEMATOCRIT 48 % (40-54); HEMOGLOBIN 16.4 g/dL (13.3-17.7); LYMPHOCYTES # (AUTO) 1.4 10^3/uL (1.0-4.0); LYMPHOCYTES % (AUTO) 18 % (12-44); MEAN CORPUSCULAR HEMOGLOBIN 33 pg (25-34); MEAN CORPUSCULAR HGB CONC 34 g/dL (32-36); MEAN CORPUSCULAR VOLUME 95 fL (80-99); MEAN PLATELET VOLUME 10.7 fL (9.0-12.2); MONOCYTES # (AUTO) 0.7 10^3/uL (0.0-1.0); MONOCYTES % (AUTO) 9 % (0-12); NEUTROPHILS # (AUTO) 5.4 10^3/uL (1.8-7.8); NEUTROPHILS % (AUTO) 69 % (42-75); PLATELET COUNT 203 10^3/uL (130-400); WHITE BLOOD COUNT 7.8 10^3/uL (4.3-11.0)
[2023-03-25 02:25] VITALS: BP 166/88
[2023-03-25 02:28] LABS: PROTHROMBIN TIME PATIENT 13.1 SEC (12.2-14.7)
[2023-03-25] MEDS ORDERED: MIDAZOLAM INJ 5 MG/5 ML VIAL ONE (02:38)
[2023-03-25] MEDS ORDERED: fentaNYL INJECTION 100 MCG/2 ML VIAL ONE (02:38)
[2023-03-25] MEDS ORDERED: LIDOCAINE 1% INJ 20 ML VIAL ONE (02:39)
[2023-03-25] MEDS ORDERED: NS IV 1000 ML 1,000 ML ONE (02:39)
[2023-03-25] MEDS ORDERED: NITRO DRIP 25000 MCG/D5W 250 ML IV ONE (02:39)
[2023-03-25] MEDS ORDERED: HEParin (CATH LAB) 2,000 ML IV ONE (02:39)
[2023-03-25] MEDS ORDERED: HEParin 1000 UNIT/ML (10ML VIAL) FOR BOLUS ONE (02:44)
[2023-03-25 02:55] LABS: BUN/CREATININE RATIO 21; CARBON DIOXIDE 23 MMOL/L (21-32); CHLORIDE 102 MMOL/L (98-107); CREATININE SERUM 1.52 MG/DL (0.60-1.30); GFR ESTIMATED 48; GLUCOSE 226 MG/DL (70-105); POTASSIUM 4.5 MMOL/L (3.6-5.0); SODIUM 138 MMOL/L (135-145)
[2023-03-25 02:56] LABS: ALANINE AMINOTRANSFERASE 23 U/L (0-55); ALKALINE PHOSPHATASE 91 U/L (40-136); BILIRUBIN,TOTAL 0.5 MG/DL (0.1-1.0); CALCIUM 9.9 MG/DL (8.5-10.1); MAGNESIUM 2.2 MG/DL (1.6-2.4)
[2023-03-25 02:58] LABS: ALBUMIN 4.7 GM/DL (3.2-4.5); LIPASE 55 U/L (8-78); TOTAL PROTEIN 7.9 GM/DL (6.4-8.2)
[2023-03-25] MEDS ORDERED: EPTIFIBATIDE BOLUS 20 ML IV ONE (03:16)
--- NOTE | 2023-03-25 04:40 | Cardiac Cath Report ---
CARDIAC CATHETERIZATION DATE OF PROCEDURE: 03/25/23 INDICATION: Ac anterior STEMI HISTORY: The patient is a 72 year old male with ac anterior STEMI transferred to this hospital from [facility] PROCEDURES PERFORMED: 1. Cor angio 2. LHC 3. PCI to LAD 4. PCI to dominant RCA PROCEDURE DESCRIPTION: After informed consent and in the fasting state, left heart catheterization was performed through the R femoral artery utilizing a 6 [place] system by percutaneous approach. JL4 guide for diagnostic L cors and for L cor intervention. JR 4 for LHC and for diagnostic R cor. JR 4 guide for R cor intervention HEMODYNAMICS: LVEDP 16 mmHg, no significant pressure gradient on pullback across the aortic valve LV Angiography: not performed to save on contrast, given eGFR 48 CORONARY ANGIOGRAPHY: Proximal coronary calcification present Left main coronary artery: Ok Left anterior descending coronary artery: 99% prox 70-80% mid with ROBERT 2 distal flow Left circumflex coronary artery: Non-dominant, relatively mild disease Right coronary artery: Dominant 90% mid PERCUTANEOUS CORONARY INTERVENTION: I - PCI to LAD (infarct related artery) Guide: 6F JL4 Wire: BMW Balloon: 2.0 x 20 Distal lesion stent: Resolute [place] 2.0 x 20 Proximal lesion stent: Skypoint 2.25 x 18 RESULTS: Proximal lesion (culprit lesion) 99% with ROBERT 2 -> 0% residual and ROBERT 3 flow; mid-vessel lesion 80% with ROBERT-2 -> 0% residual and ROBERT 3 flow [id number] time: 20 minutes from presentation to this hospital; 87 minutes from presentation to [facility] II -PCI to RCA (non-infarct related artery) Guide: 6F JR4 Wire: BMW Stent: Skypoint 3.5 x 18 Results: 90% mid-vessel stenosis with ROBERT 3 flow -> 0% residual with ROBERT 3 flow IMPRESSION: 1. Multivessel CAD. Culprit lesion was proximal LAD 99% that was exhibiting ROBERT 2 distal flow and was successfully stented with Skypoint 2.25 x 18 stent. Mid LAD had 80% stenosis that was successfully stented with Resolute [place] 2.0 x 20 stent. Stent do not overlap. LCx has mild disease. RCA is dominant and had 90% mid-vessel stenosis that was successfully stented with Skypoint 3.5 x 12 stent with 0% residual. 2. LVEDP 16 mmHg GREGORIA ESCOBAR MD FACP FACC CCDS Mar 25, 2023 04:40
--- NOTE | 2023-03-25 04:46 | Cardiology History & Physical ---
HPI-Cardiology Cardiology H&P Date of Admission 03/25/23 Primary Care Physician Admitting Physician: Attending Physician: Sydni Ernst MD, MA FACP [facility] Attending Physician Rosenda Sanchez MD Consulting Physician [facility] CC: Chest pain HPI: 72 yo man who awoke with chest pain at midnight. Chest pain was mid sternal, mod to severe, radiating to L shoulder, associated with diaphoresis, w/o aggravating or relieving factors, experienced for several minutes at a time in the last several days but more severe today. He came to [facility] ER. STs were elevated in ant leads. Treated with oral ASA and Brilinta and iv heparin and transferred to this hosp where we obtained informed consent from him for emergency cath and PCI. Subsequently, he has undergone PCI to infarct-related LAD and [id number] RCA. He does not report shortness of breath or n/v/d. Review of Systems-Cardiology Review of Systems Constitutional: No tiredness Eyes: No vision change Ears/Nose/Throat: No ear discharge, No nasal drainage, No recent hearing loss Respiratory: As described under HPI Cardiovascular: As described under HPI Gastrointestinal: As described under HPI Genitourinary: No dysuria, No hematuria Musculoskeletal: No back pain, No joint pain Skin: No rash, No ulcerations Psychiatric/Neurological: No seizure, No focal weakness Hematologic: No bleeding abnormalities BQG-Ullifd-Rnaapv Hx Patient Social History Smoking Status: Former Smoker 2nd Hand Smoke Exposure: No Alcohol Use?: Yes Pt feels they are or have been: No Past Medical History PMH As described under Assessment. Family Medical History Family Medical History: He does not report fam h/o early CAD Allergies and Home Medications Allergies Coded Allergies: No Known Drug Allergies (Unverified , 03/12/21) Patient Home Medication List Home Medication List Reviewed: Yes Doxycycline Hyclate (Doxycycline Hyclate) 50 Mg Capsule, 50 MG PO SUN, (Reported) Entered as Reported by: CORRINE CHAN on 03/14/21 141 Hydrochlorothiazide (Hydrochlorothiazide) 12.5 Mg Tablet, 12.5 MG PO DAILY, (Reported) Entered as Reported by: CORRINE CHAN on 03/14/21 141 Lisinopril (Lisinopril) 20 Mg Tablet, 20 MG PO DAILY, (Reported) Entered as Reported by: CORRINE CHAN on 03/14/21 1412 Pantoprazole Sodium (Pantoprazole Sodium) 40 Mg Tablet.dr, 40 MG PO DAILY Prescribed by: VIVIAN LEE on 09/05/21 0116 Physical Exam-Cardiology Physical Exam Vital Signs/I&O 03/25/23 03/25/23 03/25/23 03/25/23 01:44 01:44 02:00 02:15 Temp 36.8 36.8 Pulse 86 86 86 87 Resp 14 16 22 B/P (MAP) 191/95 (127) 191/95 (127) 172/93 (119) 166/88 (114) Pulse Ox 98 98 96 96 O2 Delivery Room Air Room Air Room Air Room Air 03/25/23 02:25 Temp 36.8 Pulse 87 Resp 22 B/P (MAP) 166/88 Pulse Ox 96 O2 Delivery Room Air Capillary Refill : Less Than 3 Seconds Constitutional: AAO x 3, well-developed, well-nourished HEENT: EOMI, hearing is well preserved; No xanthelasmas are seen Neck: carotid pulses are 2 + bilaterally, with good upstrokes Respiratory: No accessory muscle use; chest expansion is symmetric, chest is bilaterally symmetric, other (good, bilateral air entry) Cardiovascular: regular rate-rhythm, S1 and S2, systolic murmur (soft JOHN at card base) Gastrointestinal: No tender; soft; No guarding; audible bowel sounds Extremities: No clubbing, No cyanosis Neurologic/Psychiatric: oriented x 3, other (moves all limbs equally) Skin: No rash on exposed areas, No ulcerations on exposed areas Data Review Labs Laboratory Tests 03/25/23 02:00: White Blood Count 7.8, Red Blood Count 5.01, Hemoglobin 16.4, Hematocrit 48, Mean Corpuscular Volume 95, Mean Corpuscular Hemoglobin 33, Mean Corpuscular Hemoglobin Concent 34, Red Cell Distribution Width 13.3, Platelet Count 203, Mean Platelet Volume 10.7, Immature Granulocyte % (Auto) 1, Neutrophils (%) (Auto) 69, Lymphocytes (%) (Auto) 18, Monocytes (%) (Auto) 9, Eosinophils (%) (Auto) 4, Basophils (%) (Auto) 1, Neutrophils # (Auto) 5.4, Lymphocytes # (Auto) 1.4, Monocytes # (Auto) 0.7, Eosinophils # (Auto) 0.3, Basophils # (Auto) 0.0, Immature Granulocyte # (Auto) 0.0, Prothrombin Time 13.1, INR Comment 1.0, Activated Partial Thromboplast Time 43H, Sodium Level 138, Potassium Level 4.5, Chloride Level 102, Carbon Dioxide Level 23, Anion Gap 13, Blood Urea Nitrogen 32H, Creatinine 1.52H, Estimat Glomerular Filtration Rate 48, BUN/Creatinine Ratio 21, Glucose Level 226H, Calcium Level 9.9, Corrected Calcium , Magnesium Level 2.2, Total Bilirubin 0.5, Aspartate Amino Transf (AST/SGOT) 38H, Alanine Aminotransferase (ALT/SGPT) 23, Alkaline Phosphatase 91, Troponin I 2.11*H, Pro- B-Type Natriuretic Peptide 1052.0H, Total Protein 7.9, Albumin 4.7H, Lipase 55 Laboratory Tests 03/25/23 02:00 A/P-Cardiology Assessment/Admission Diagnosis Ac anterior wall STEMI - cath on 03/25/23: Multivessel CAD. Culprit lesion was proximal LAD 99% that was exhibiting ROBERT 2 distal flow and was successfully stented with Skypoint 2.25 x 18 stent. Mid LAD had 80% stenosis that was successfully stented with Resolute [place] 2.0 x 20 stent. Stent do not overlap. LCx has mild disease. RCA is dominant and had 90% mid-vessel stenosis that was successfully stented with Skypoint 3.5 x 12 stent with 0% residual. LVEDP 16 mmHg. 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
--- NOTE | 2023-03-25 04:52 | Cardiac Procedure Note-CS/ASA ---
Pre-Procedure Note Pre-Op Procedure Note Date of Available H&P: Mar 25, 2023 Date H&P Reviewed: Mar 25, 2023 Time H&P Reviewed: 02:57 History & Physical: H&P Reviewed, Patient Examed Moderate Sedation PreProcedure ASA Score 4 Airway Lungs Heart ASA score ASA 1: a normal healthy patient ASA 2: a patient with a mild systemic disease (mid diabetes, controlled hypertension, obesity ASA 3: a patient with a severe systemic disease that limits activity (angina, COPD, prior Myocardial infarction) ASA 4: a patient with an incapacitating disease that is a constant threat to life (CHF, renal failure) ASA 5: a moribund patient not expected to survive 24 hrs. (ruptured aneurysm) ASA 6: a declared brain- patient whose organs are being harvested. For emergent operations, add the letter E after the classification Mallampati Classification Grade 3 Sedation Plan Analgesia, Amnesia, Plan communicated to team members The patient is an appropriate candidate to undergo the planned procedure, sedation, and anesthesia. The patient immediately re-assessed prior to indication. GREGORIA ESCOBAR MD FACP FAC CCDS Mar 25, 2023 04:52
[2023-03-25] MEDS ORDERED: ACETAMINOPHEN 325 MG TABLET PO PRN (05:00)
[2023-03-25] MEDS ORDERED: PATIENT MAY USE OWN MEDS, ALL PO SCH (05:00)
[2023-03-25] MEDS ORDERED: NITROGLYCERIN 0.4 MG SL TABLETS BTL 25'S SL PRN (05:00)
[2023-03-25] MEDS: NS IV 1000 ML 1,000 ML IV SCH ×2 (05:44→15:57)
[2023-03-25] MEDS ORDERED: FLU HIGH DOSE (65+ YOA) 240 MCG/0.7 ML 2023-24 (FLUZONE) IM ONE (06:45)
[2023-03-25] MEDS: inSUlin ASPART 1 UNIT/0.01 ML (PER UNIT) SC SCH ×4 (06:55→20:35)
--- NOTE | 2023-03-25 07:06 | Diagnostic Imaging Report ---
EXAMINATION: Chest radiograph, portable AP view. DATE: 03/25/2023 2:05 AM INDICATION: 72-year-old male, sudden onset chest pain and shortness of breath. COMPARISON: CT chest July 24, 2021. FINDINGS: Heart size and mediastinal contours are unremarkable. There is no identified pneumothorax. There is no large pleural effusion. There are biapical opacities. This most likely relates to pleural parenchymal scarring correlating with prior CT chest. There is no identified interval focal airspace consolidation. IMPRESSION: 1. No identified acute cardiopulmonary abnormality. 2. Pleural parenchymal scarring in the lung apices. Dictated by: Dictated on workstation # [id number]
[2023-03-25] MEDS: ASPIRIN 81 MG CHEWABLE TABLET PO SCH (09:19)
[2023-03-25] MEDS: TICAGRELOR 90 MG TABLET (BRILINTA) PO SCH ×2 (09:19→20:39)
--- NOTE | 2023-03-25 10:08 | Consultation - Hospitalist ---
HPI History of Present Illness: HPI/Chief Complaint Pt is a 72-year-old male with past medical history of hypertension who presented to the emergency department due to chest pain. He reports he has been having similar symptoms that have been escalating in nature for the past few months. He reports that when it started it would be with exertion and he would rest for 5 or so minutes and the chest pain would get better. Over the past few months it would take longer to resolve and would occur even without exertion. He had done some research and thought that he may have a hiatal hernia so actually scheduled an appointment with a oracle distribution consultant at [facility], Dr. Wick that was supposed to be today. He woke up around midnight with chest pain and shortness of breath that radiated to his arms and shoulders. EKG was performed and showed that he was having a STEMI. He was given aspirin and metoprolol and taken emergently to the Wire Products Inspector. He was started on heparin per [facility] protocol. In the [facility] Products Inspector. He had 3 stents done to the proximal LAD, mid LAD, RCA. This morning he reports feeling better though he still has some re sidual chest pain that is dull and some intermittent shortness of breath that he associates with anesthesia. Source: patient, family Date Seen 03/25/23 Attending Physician Rosenda Sanchez MD PCP Admitting Physician: Sydni Ernst MD [facility] Attending Physician: Sydni Ernst MD [facility] Referring Physician Date of Admission Mar 25, 2023 at 04:57 Home Medications & Allergies Home Medications Reviewed patient Home Medication Reconciliation performed by pharmacy medication reconciliations master sonar technician and/or nursing. Patients Allergies have been reviewed. Allergies Allergies Coded Allergies No Known Drug Allergies (Unverified03/12/21) Past Uoneibe-Qlfgbh-Oaihgf Hx Patient Social History Tobacco Use?: No Smoking Status: Former Smoker (quit 2015) Use of E-Cig and/or Vaping dev: No Substance use?: No Alcohol Use?: Yes Alcohol type: Beer, Hard Liquor, Wine Alcohol Frequency: Daily Additional Alcohol Comments: "couple of drinks daily" Pt feels they are or have been: No Immunizations Up To Date First/Initial COVID19 Vaccinat: 08/14/2020 Second COVID19 Vaccination Migel: 09/11/2020 Tetanus Booster (TDap): More Than 5 Years Hepatitis A: No Hepatitis B: No Seasonal Allergies Seasonal Allergies: No Current Status Advance Directives: Yes Communicates: Verbally Primary Language: Mongolian Preferred Spoken Language: Mongolian Is interpretation needed?: No Sensory deficits: Vision impairment Implanted or Applied Medical D: Stents Past Medical History Surgeries: Abdominal Currently Using CPAP: No Currently Using BIPAP: No High Cholesterol, Hypertension Blood Disorders: No Adverse Reaction/Blood Tranf: No Review of Systems Constitutional: see HPI Physical Exam Physical Exam Vital Signs Vital Signs - First Documented 03/25/23 03/25/23 01:44 05:11 Temp 36.8 Pulse 86 Resp 14 B/P (MAP) 191/95 (127) Pulse Ox 98 O2 Delivery Room Air O2 Flow Rate 2.00 Capillary Refill : Less Than 3 Seconds Height, Weight, BMI Height: '" Weight: lbs. oz. kg; 24.92 BMI Method: General Appearance: No Apparent Distress, WD/WN HEENT: PERRL/EOMI Respiratory: Lungs Clear, No Accessory Muscle Use, No Respiratory Distress, Other (end tidal monitor in place) Cardiovascular: Regular Rate, Rhythm, Normal Peripheral Pulses Gastrointestinal: Normal Bowel Sounds, Non Tender, Soft Extremity: Normal Capillary Refill, No Pedal Edema Neurologic/Psychiatric: Alert, Oriented x3, Normal Mood/Affect Skin: Normal Color, Warm/Dry Results Results/Procedures Labs Laboratory Tests 03/25/23 02:00 Patient resulted labs reviewed. Imaging: Reviewed Imaging Report Imaging [facility], [place] NAME: RADHA SEGOVIA [facility] REC#: [id number] PT STATUS: ADM IN : 1950 PHYSICIAN: PAT AMIN MD ADMIT DATE: 03/25/23/ICU Signed Date of Exam:03/25/23 CHEST 1 VIEW AP/PA ONLY EXAMINATION: Chest radiograph, portable AP view. DATE: 03/25/2023 2:05 AM INDICATION: 72-year-old male, sudden onset chest pain and shortness of breath. COMPARISON: CT chest July 24, 2021. FINDINGS: Heart size and mediastinal contours are unremarkable. There is no identified pneumothorax. There is no large pleural effusion. There are biapical opacities. This most likely relates to pleural parenchymal scarring correlating with prior CT chest. There is no identified interval focal airspace consolidation. IMPRESSION: 1. No identified acute cardiopulmonary abnormality. 2. Pleural parenchymal scarring in the lung apices. Dictated by: Dictated on workstation # [id number] Dict: 03/25/2357 Trans: 03/25/23749 [employer] [facility] [id number] Interpreted by: MARIE CARDOZA MD Electronically signed by: MARIE CARDOZA MD 03/25/23749 Assessment/Plan Assessment and Plan Assess & Plan/Chief Complaint STEMI HTN Cardiology Primary s/p emergent cath with intervention to LAD and RCA- three total stents Continue metoprolol, Lipitor, Brilinta, Aspirin Monitor in ICU Echo ordered NIDDMII On glipizide per med rec SSI BS 140, trend Diagnosis/Problems Diagnosis/Problems (1) Non-insulin dependent type 2 diabetes mellitus (2) Hypertension (3) Acute ST elevation myocardial infarction (STEMI) Clinical Quality Measures AMI/AHF: ASA po Prior to arrival: ANNEMARIE Colon MD Mar 25, 2023 10:08
[2023-03-26] MEDS: NS IV 1000 ML 1,000 ML IV SCH ×2 (01:19→09:54)
[2023-03-26] MEDS: inSUlin ASPART 1 UNIT/0.01 ML (PER UNIT) SC SCH ×4 (05:23→20:59)
--- NOTE | 2023-03-26 08:35 | Progress Note - Hospitalist ---
Subjective HPI/CC On Admission Date Seen by Provider: Mar 26, 2023 Pt is a 72-year-old male with past medical history of hypertension who presented to the emergency department due to chest pain. He reports he has been having similar symptoms that have been escalating in nature for the past few months. He reports that when it started it would be with exertion and he would rest for 5 or so minutes and the chest pain would get better. Over the past few months it would take longer to resolve and would occur even without exertion. He had done some research and thought that he may have a hiatal hernia so actually scheduled an appointment with a public health specialist at [facility], Dr. Wick that was supposed to be today. He woke up around midnight with chest pain and shortness of breath that radiated to his arms and shoulders. EKG was performed and showed that he was having a STEMI. He was given aspirin and metoprolol and taken emergently to the Women'S Studies Professor. He was started on heparin per [facility] protocol. In the Women'S Studies Professor. He had 3 stents done to the proximal LAD, mid LAD, RCA. This morning he reports feeling better though he still has some residual chest pain that is dull and some intermittent shortness of breath that he associates with anesthesia. Subjective/Events-last exam Pt repors feeling much better. No complaints. Does have a few questions regarding the blockages and if there was damage to his heart. Discussed need for echo and that Dr Ernst could tell him more about the blockages. He did ask about dietary education now that he has had a heart attack. Objective Exam Vital Signs Vital Signs Date Time Temp Pulse Resp B/P (MAP) Pulse Ox O2 Delivery O2 Flow Rate FiO2 03/26/23 07:49 36.2 87 23 120/80 (93) 97 Room Air 03/25/23 20:00 2.00 Capillary Refill : Less Than 3 Seconds General Appearance: No Apparent Distress, WD/WN Respiratory: Lungs Clear Cardiovascular: Regular Rate, Rhythm, No Murmur Gastrointestinal: Normal Bowel Sounds, Soft Neurologic/Psychiatric: Alert, Oriented x3 Results/Procedures Lab Patient resulted labs reviewed. Imaging: Reviewed Imaging Report Assessment/Plan Assessment and Plan Assess & Plan/Chief Complaint STEMI HTN Cardiology Primary s/p emergent cath with intervention to LAD and RCA- three total stents Continue metoprolol, Lipitor, Brilinta, Aspirin Echo ordered- pending still Dietary consult placed and outpatient referral placed NIDDMII On glipizide per med rec SSI BS 120-140s Diagnosis/Problems Diagnosis/Problems (1) Non-insulin dependent type 2 diabetes mellitus (2) Hypertension (3) Acute ST elevation myocardial infarction (STEMI) Clinical Quality Measures AMI/AHF: ASA po Prior to arrival: ANNEMARIE Colon MD Mar 26, 2023 08:35
--- NOTE | 2023-03-26 08:43 | Progress Note - Cardiology ---
Cardiology SOAP Progress Note Subjective: Lying in bed No c/o CP, SOB or palpitations No c/o right groin discomfort Objective: I&O/Vital Signs 03/26/23 03/27/23 03/27/23 23:51 01:00 03:50 Temp 37.7 36.7 Pulse 85 73 78 Resp 20 18 B/P (MAP) 125/76 (92) 126/78 (94) Pulse Ox 99 95 O2 Delivery Room Air Room Air 03/27/23 00:00 Intake Total 1050 ml Balance 1050 ml Side: right Groin site without hematoma: Yes Condition: DP/PT pulses palpable, extremity w/d/p Bruising: mild bruising Constitutional: AAO x 3, well-developed, well-nourished Respiratory: No accessory muscle use; chest expansion is symmetric, chest is bilaterally symmetric, other (good, bilateral air entry) Cardiovascular: regular rate-rhythm, S1 and S2, systolic murmur (soft JOHN at card base) Gastrointestional: No tender; soft; No guarding; audible bowel sounds Extremities: No clubbing, No cyanosis Neurologic/Psychiatric: oriented x 3, other (moves all limbs equally) Skin: No rash on exposed areas, No ulcerations on exposed areas Results/Procedures: Labs Laboratory Tests 03/26/23 15:06: Glucometer 120H 03/26/23 19:54: Glucometer 204H 03/26/23 20:59: Glucometer 149H 03/27/23 06:10: Glucometer 125H 03/27/23 07:50: White Blood Count 8.0, Red Blood Count 4.72, Hemoglobin 15.7, Hematocrit 44, Mean Corpuscular Volume 94, Mean Corpuscular Hemoglobin 33, Mean Corpuscular Hemoglobin Concent 35, Red Cell Distribution Width 13.1, Platelet Count 188, Mean Platelet Volume 10.9, Sodium Level 138, Potassium Level 4.9, Chloride Level 110H, Carbon Dioxide Level 17L, Anion Gap 11, Blood Urea Nitrogen 20H, Creatinine 1.38H, Estimat Glomerular Filtration Rate 54, BUN/Creatinine Ratio 14, Glucose Level 85, Calcium Level 8.8 Microbiology 03/25/23 MRSA Screen - Final, Complete MRSA not isolated A/P: Assessment: Ac anterior wall STEMI - cath on 03/25/23: Multivessel CAD. Culprit lesion was proximal LAD 99% that was exhibiting ROBERT 2 distal flow and was successfully stented with Skypoint 2.25 x 18 stent. Mid LAD had 80% stenosis that was successfully stented with Resolute Rogelio 2.0 x 20 stent. Stent do not overlap. LCx has mild disease. RCA is dominant and had 90% mid-vessel stenosis that was successfully stented with Skypoint 3.5 x 12 stent with 0% residual. LVEDP 16 mmHg. 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
[2023-03-26 08:53] LABS: HEMATOCRIT 40 % (40-54); HEMOGLOBIN 14.1 g/dL (13.3-17.7); MEAN CORPUSCULAR HEMOGLOBIN 33 pg (25-34); MEAN CORPUSCULAR HGB CONC 35 g/dL (32-36); MEAN CORPUSCULAR VOLUME 94 fL (80-99); MEAN PLATELET VOLUME 10.6 fL (9.0-12.2); PLATELET COUNT 169 10^3/uL (130-400); WHITE BLOOD COUNT 6.6 10^3/uL (4.3-11.0)
[2023-03-26 09:03] LABS: POTASSIUM 3.8 MMOL/L (3.6-5.0)
[2023-03-26 09:04] LABS: CALCIUM 8.4 MG/DL (8.5-10.1)
[2023-03-26 09:08] LABS: CREATININE SERUM 1.39 MG/DL (0.60-1.30)
[2023-03-26] MEDS: ASPIRIN 81 MG CHEWABLE TABLET PO SCH (09:20)
[2023-03-26] MEDS: TICAGRELOR 90 MG TABLET (BRILINTA) PO SCH ×2 (09:21→19:55)
[2023-03-26] MEDS ORDERED: GLIP5TAB13 PO ×2 (11:30)
[2023-03-26] MEDS ORDERED: TMSL.4C PO (11:30)
[2023-03-26] MEDS ORDERED: LISI40TA9 PO (11:30)
[2023-03-26] MEDS ORDERED: PANT40TA52 PO (11:30)
--- NOTE | 2023-03-26 13:24 | Progress Note - Cardiology ---
Cardiology SOAP Progress Note Subjective: No c/o CP, SOB or palpitations No c/o right groin discomfort No leg discomfort No n/v/d Objective: I&O/Vital Signs 03/26/23 03/26/23 03/26/23 03/26/23 03:33 07:02 07:49 08:00 Temp 37.0 36.2 Pulse 84 68 87 Resp 18 23 B/P (MAP) 115/80 (92) 120/80 (93) Pulse Ox 96 97 98 O2 Delivery Room Air Room Air Room Air 03/26/23 03/26/23 12:01 12:03 Temp 36.0 Pulse 77 75 Resp 14 B/P (MAP) 124/85 (98) Pulse Ox 99 O2 Delivery Room Air O2 Flow Rate 03/26/23 00:00 Intake Total 2120 ml Output Total 900 ml Balance 1220 ml Side: right Groin site without hematoma: Yes Condition: DP/PT pulses palpable, extremity w/d/p Bruising: mild bruising Constitutional: AAO x 3, well-developed, well-nourished Respiratory: No accessory muscle use; chest expansion is symmetric, chest is bilaterally symmetric, other (good, bilateral air entry) Cardiovascular: regular rate-rhythm, S1 and S2, systolic murmur (soft JOHN at card base) Gastrointestional: No tender; soft; No guarding; audible bowel sounds Extremities: No clubbing, No cyanosis Neurologic/Psychiatric: oriented x 3, other (moves all limbs equally) Skin: No rash on exposed areas, No ulcerations on exposed areas Results/Procedures: Labs Laboratory Tests 03/25/23 20:33: Glucometer 176H 03/26/23 05:16: Glucometer 138H 03/26/23 08:45: White Blood Count 6.6, Red Blood Count 4.31, Hemoglobin 14.1, Hematocrit 40, Mean Corpuscular Volume 94, Mean Corpuscular Hemoglobin 33, Mean Corpuscular Hemoglobin Concent 35, Red Cell Distribution Width 13.2, Platelet Count 169, Mean Platelet Volume 10.6, Sodium Level 138, Potassium Level 3.8, Chloride Level 111H, Carbon Dioxide Level 17L, Anion Gap 10, Blood Urea Nitrogen 18, Creatinine 1.39H, Estimat Glomerular Filtration Rate 54, BUN/Creatinine Ratio 13, Glucose Level 218H, Calcium Level 8.4L 10/3/23 09:51: Glucometer 152H Microbiology 03/25/23 MRSA Screen - Final, Complete MRSA not isolated Laboratory Tests 03/25/23 02:00 03/26/23 08:45 A/P: Assessment: Ac anterior wall STEMI - cath on 03/25/23: Multivessel CAD. Culprit lesion was proximal LAD 99% that was exhibiting ROBERT 2 distal flow and was successfully stented with Skypoint 2.25 x 18 stent. Mid LAD had 80% stenosis that was successfully stented with Resolute [place] 2.0 x 20 stent. Stent do not overlap. LCx has mild disease. RCA is dominant and had 90% mid-vessel stenosis that was successfully stented with Skypoint 3.5 x 12 stent with 0% residual. LVEDP 16 mmHg. 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 Mar 26, 2023 13:24
[2023-03-27] MEDS: inSUlin ASPART 1 UNIT/0.01 ML (PER UNIT) SC SCH ×2 (06:11→11:02)
[2023-03-27] MEDS ORDERED: glipiZIDE 5 MG TABLET PO SCH (07:00)
[2023-03-27 08:13] LABS: HEMATOCRIT 44 % (40-54); HEMOGLOBIN 15.7 g/dL (13.3-17.7); MEAN CORPUSCULAR HEMOGLOBIN 33 pg (25-34); MEAN CORPUSCULAR HGB CONC 35 g/dL (32-36); MEAN CORPUSCULAR VOLUME 94 fL (80-99); MEAN PLATELET VOLUME 10.9 fL (9.0-12.2); PLATELET COUNT 188 10^3/uL (130-400)
[2023-03-27 08:19] LABS: CALCIUM 8.8 MG/DL (8.5-10.1); CREATININE SERUM 1.38 MG/DL (0.60-1.30); POTASSIUM 4.9 MMOL/L (3.6-5.0)
[2023-03-27] MEDS: ASPIRIN 81 MG CHEWABLE TABLET PO SCH (08:47)
[2023-03-27] MEDS: TICAGRELOR 90 MG TABLET (BRILINTA) PO SCH (08:47)
[2023-03-27] MEDS ORDERED: PANTOPRAZOLE 40 MG TABLET PO SCH (09:00)
[2023-03-27] MEDS ORDERED: ASPI81TA64 PO (10:07)
[2023-03-27] MEDS ORDERED: ATOR80TA76 PO (10:07)
[2023-03-27] MEDS ORDERED: TICA90TA PO (10:07)
[2023-03-27] MEDS ORDERED: LISI10TA25 PO (10:07)
--- NOTE | 2023-03-27 10:20 | Progress Note - Cardiology ---
Cardiology SOAP Progress Note Subjective: Lying in bed No c/o CP or SOB No c/o palpitations Voiced concern with superficial bruising to arms bilat Objective: I&O/Vital Signs 03/26/23 03/27/23 03/27/23 23:51 01:00 03:50 Temp 37.7 36.7 Pulse 85 73 78 Resp 20 18 B/P (MAP) 125/76 (92) 126/78 (94) Pulse Ox 99 95 O2 Delivery Room Air Room Air 03/27/23 00:00 Intake Total 1050 ml Balance 1050 ml Side: right Groin site without hematoma: Yes Condition: DP/PT pulses palpable, extremity w/d/p Bruising: mild bruising Constitutional: AAO x 3, well-developed, well-nourished Respiratory: No accessory muscle use; chest expansion is symmetric, chest is bilaterally symmetric, other (good, bilateral air entry) Cardiovascular: regular rate-rhythm, S1 and S2, systolic murmur (soft JOHN at card base) Gastrointestional: No tender; soft; No guarding; audible bowel sounds Extremities: No clubbing, No cyanosis Neurologic/Psychiatric: oriented x 3, other (moves all limbs equally) Skin: No rash on exposed areas, No ulcerations on exposed areas Results/Procedures: Labs Laboratory Tests 03/26/23 15:06: Glucometer 120H 03/26/23 19:54: Glucometer 204H 03/26/23 20:59: Glucometer 149H 03/27/23 06:10: Glucometer 125H 03/27/23 07:50: White Blood Count 8.0, Red Blood Count 4.72, Hemoglobin 15.7, Hematocrit 44, Mean Corpuscular Volume 94, Mean Corpuscular Hemoglobin 33, Mean Corpuscular Hemoglobin Concent 35, Red Cell Distribution Width 13.1, Platelet Count 188, Mean Platelet Volume 10.9, Sodium Level 138, Potassium Level 4.9, Chloride Level 110H, Carbon Dioxide Level 17L, Anion Gap 11, Blood Urea Nitrogen 20H, Creatinine 1.38H, Estimat Glomerular Filtration Rate 54, BUN/Creatinine Ratio 14, Glucose Level 85, Calcium Level 8.8 Microbiology 03/25/23 MRSA Screen - Final, Complete MRSA not isolated Laboratory Tests 03/26/23 08:45 03/27/23 07:50 A/P: Assessment: Ac anterior wall STEMI - cath on 03/25/23: Multivessel CAD. Culprit lesion was proximal LAD 99% that was exhibiting ROBERT 2 distal flow and was successfully stented with Skypoint 2.25 x 18 stent. Mid LAD had 80% stenosis that was successfully stented with Resolute [place] 2.0 x 20 stent. Stent do not overlap. LCx has mild disease. RCA is dominant and had 90% mid-vessel stenosis that was successfully stented with Skypoint 3.5 x 12 stent with 0% residual. LVEDP 16 mmHg. 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
--- NOTE | 2023-03-27 13:27 | Progress Note - Cardiology ---
Cardiology SOAP Progress Note Subjective: Gen weakness and malaise Shortness of breath with activity No cp or palp or syncope No n/v/d No groin or leg discomfort Objective: I&O/Vital Signs 03/27/23 03/27/23 03/27/23 03/27/23 03:50 07:00 08:00 08:00 Temp 36.7 Pulse 78 72 Resp 18 B/P (MAP) 126/78 (94) 138/95 (109) Pulse Ox 95 96 O2 Delivery Room Air Room Air Room Air 03/27/23 12:00 Pulse 84 B/P (MAP) 03/26/23 23:59 Intake Total 1050 ml Balance 1050 ml Side: right Groin site without hematoma: Yes Condition: DP/PT pulses palpable, extremity w/d/p Bruising: mild bruising Constitutional: AAO x 3, well-developed, well-nourished Respiratory: No accessory muscle use; chest expansion is symmetric, chest is bilaterally symmetric, other (good, bilateral air entry) Cardiovascular: regular rate-rhythm, S1 and S2, systolic murmur (soft JOHN at card base) Gastrointestional: No tender; soft; No guarding; audible bowel sounds Extremities: No clubbing, No cyanosis Neurologic/Psychiatric: oriented x 3, other (moves all limbs equally) Skin: No rash on exposed areas, No ulcerations on exposed areas Results/Procedures: Labs Laboratory Tests 03/26/23 15:06: Glucometer 120H 03/26/23 19:54: Glucometer 204H 03/26/23 20:59: Glucometer 149H 03/27/23 06:10: Glucometer 125H 03/27/23 07:50: White Blood Count 8.0, Red Blood Count 4.72, Hemoglobin 15.7, Hematocrit 44, Mean Corpuscular Volume 94, Mean Corpuscular Hemoglobin 33, Mean Corpuscular Hemoglobin Concent 35, Red Cell Distribution Width 13.1, Platelet Count 188, Mean Platelet Volume 10.9, Sodium Level 138, Potassium Level 4.9, Chloride Level 110H, Carbon Dioxide Level 17L, Anion Gap 11, Blood Urea Nitrogen 20H, Creatinine 1.38H, Estimat Glomerular Filtration Rate 54, BUN/Creatinine Ratio 14, Glucose Level 85, Calcium Level 8.8 03/27/23 10:49: Glucometer 102 Microbiology 03/25/23 MRSA Screen - Final, Complete MRSA not isolated Laboratory Tests 03/26/23 08:45 03/27/23 07:50 A/P: Assessment: Ac anterior wall STEMI - cath on 03/25/23: Multivessel CAD. Culprit lesion was proximal LAD 99% that was exhibiting ROBERT 2 distal flow and was successfully stented with Skypoint 2.25 x 18 stent. Mid LAD had 80% stenosis that was successfully stented with Resolute Rogelio 2.0 x 20 stent. Stent do not overlap. LCx has mild disease. RCA is dominant and had 90% mid-vessel stenosis that was successfully stented with Skypoint 3.5 x 12 stent with 0% residual. LVEDP 16 mmHg. 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 Will discharge on current regimen. Outpt f/u advised. Compliance advised. Questions answered Clinical Quality Measures AMI/AHF: ASA po Prior to arrival: GREGORIA Khanna MD FACP [facility] Mar 27, 2023 13:27
--- NOTE | 2023-03-27 13:28 | Cardiology Discharge Summary ---
Diagnosis/Chief Complaint Date of Admission Mar 25, 2023 at 04:57 Date of Discharge 03-27-23 Final/Discharge Diagnosis Ac anterior wall STEMI - cath on 03/25/23: Multivessel CAD. Culprit lesion was proximal LAD 99% that was exhibiting ROBERT 2 distal flow and was successfully stented with Skypoint 2.25 x 18 stent. Mid LAD had 80% stenosis that was successfully stented with Resolute Rogelio 2.0 x 20 stent. Stent do not overlap. LCx has mild disease. RCA is dominant and had 90% mid-vessel stenosis that was successfully stented with Skypoint 3.5 x 12 stent with 0% residual. LVEDP 16 mmHg. 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 Chest pain was mid sternal, mod to severe, radiating to L shoulder, associated with diaphoresis, w/o aggravating or relieving factors, experienced for several minutes at a time in the last several days but more severe today. He came to [facility] ER. STs were elevated in ant leads. Treated with oral ASA and Brilinta and iv heparin and transferred to this hosp where we obtained informed consent from him for emergency cath and PCI. Subsequently, he has undergone PCI to infarct-related LAD and rfy-londeta-revesgi RCA. He does not report shortness of breath or n/v/d. Please refer to our progress note of 03-27-23 (today) for hosp course and condition at discharge Discharge Summary Hospital Course Pending Labs Laboratory Tests 03/27/23 06:10: Glucometer 125 03/27/23 07:50: White Blood Count 8.0, Red Blood Count 4.72, Hemoglobin 15.7, Hematocrit 44, Mean Corpuscular Volume 94, Mean Corpuscular Hemoglobin 33, Mean Corpuscular Hemoglobin Concent 35, Red Cell Distribution Width 13.1, Platelet Count 188, Mean Platelet Volume 10.9, Sodium Level 138, Potassium Level 4.9, Chloride Level 110, Carbon Dioxide Level 17, Anion Gap 11, Blood Urea Nitrogen 20, Creatinine 1.38, Estimat Glomerular Filtration Rate 54, BUN/Creatinine Ratio 14, Glucose Level 85, Calcium Level 8.8 03/27/23 10:49: Glucometer 102 Discussion & Recommendations Home Medications Reviewed patient Home Medication Reconciliation performed by pharmacy medication reconciliations research and development technician and/or nursing. Patients Allergies have been reviewed. Discharge Home Medications: Reviewed and agree with Discharge Medication list on patient's Discharge Instr uction sheet Clinical Quality Measures AMI/AHF: ASA po Prior to arrival: GREGORIA Khanna MD FACP [facility] Mar 27, 2023 13:28
[2023-03-27] MEDS ORDERED: TAMSULOSIN 0.4 MG (FLOMAX) CAP PO SCH (14:00)
[2023-03-28] MEDS ORDERED: METO-352 PO (09:28)
== END 2023-03-27 14:15 | disposition home or self-care (01) | DRG 322 ==
LOC: EDUNIT# 01:42 → ER FS 01:43 → CATH 02:51 → ICU 04:57 → CSD 03-26 15:06
PROVIDERS: ADMIT Internal Medicine Cardiovascular Disease; ATTEND Internal Medicine Cardiovascular Disease
PROC: 4A023N7 Measurement of Cardiac Sampling and Pressure, Left Heart, Percutaneous Approach (ICD-10-PCS; principal; 2023-03-25)
PROC: 027136Z Dilation of Coronary Artery, Two Arteries with Three Drug-eluting Intraluminal Devices, Percutaneous Approach (ICD-10-PCS; 2023-03-25)
PROC: B2111ZZ Fluoroscopy of Multiple Coronary Arteries using Low Osmolar Contrast (ICD-10-PCS; 2023-03-25)
DX: I21.02 ST elevation (STEMI) myocardial infarction involving left anterior descending coronary artery (principal); I25.10 Atherosclerotic heart disease of native coronary artery without angina pectoris; E11.22 Type 2 diabetes mellitus with diabetic chronic kidney disease; I12.9 Hypertensive chronic kidney disease with stage 1 through stage 4 chronic kidney disease, or unspecified chronic kidney disease; N18.32 Chronic kidney disease, stage 3b; E78.00 Pure hypercholesterolemia, unspecified; H54.7 Unspecified visual loss; Z79.84 Long term (current) use of oral hypoglycemic drugs; Z87.891 Personal history of nicotine dependence
CPT/HCPCS: 36415; 71045; 80048; 80053; 82947; 83690; 83735; 83880; 84484; 85025; 85027; 85610; 85730; 87081; 93005; 93041; 93306; 93458

== ENCOUNTER 2023-04-22 11:27 | Outpatient (RCR) | payer MEDICARE, OTHER ==
[~2023-04-22 11:27] MED LIST changes: +ASPI81TA64 PO; +ATOR80TA76 PO; +GLIP5TAB23 PO; +LISI10TA25 PO; +LISI40TA9 PO; +METO-352 PO; +TICA90TA PO; +TMSL.4C PO
== END 2023-04-23 | disposition home or self-care (01) ==
LOC: CR 11:27
PROVIDERS: ATTEND Internal Medicine Cardiovascular Disease
DX: Z29.89 Encounter for other specified prophylactic measures (principal); Z86.79 Personal history of other diseases of the circulatory system
CPT/HCPCS: 93798

== ENCOUNTER → 2023-05-06 | Outpatient (CLI) | payer MEDICARE, OTHER ==
[2023-05-06 09:13] LABS: ALANINE AMINOTRANSFERASE 57 U/L (0-55); ALBUMIN 4.6 GM/DL (3.2-4.5); ALKALINE PHOSPHATASE 109 U/L (40-136); BILIRUBIN,TOTAL 1.1 MG/DL (0.1-1.0); BUN/CREATININE RATIO 22; CALCIUM 9.6 MG/DL (8.5-10.1); CARBON DIOXIDE 19 MMOL/L (21-32); CHLORIDE 111 MMOL/L (98-107); CHOLESTEROL 117 MG/DL (< 200); CREATININE SERUM 1.52 MG/DL (0.60-1.30); GFR ESTIMATED 48; GLUCOSE 90 MG/DL (70-105); HDL CHOLESTEROL 50 MG/DL (40-60); POTASSIUM 4.4 MMOL/L (3.6-5.0); SODIUM 138 MMOL/L (135-145); TOTAL PROTEIN 7.6 GM/DL (6.4-8.2); TRIGLYCERIDES 79 MG/DL (<150); VLDL CHOLESTEROL 16 MG/DL (5-40)
== END ==
LOC: LAB 08:34
PROVIDERS: ATTEND Internal Medicine Cardiovascular Disease
DX: I25.10 Atherosclerotic heart disease of native coronary artery without angina pectoris (principal); I25.5 Ischemic cardiomyopathy; I11.9 Hypertensive heart disease without heart failure; N18.30 Chronic kidney disease, stage 3 unspecified; E78.2 Mixed hyperlipidemia; I12.9 Hypertensive chronic kidney disease with stage 1 through stage 4 chronic kidney disease, or unspecified chronic kidney disease; Z86.79 Personal history of other diseases of the circulatory system
CPT/HCPCS: 36415; 80053; 80061

== ENCOUNTER 2023-05-20 13:28 | Outpatient (RCR) | payer MEDICARE, OTHER | END 2023-05-23 | disposition home or self-care (01) | LOC: CR 13:28 | PROVIDERS: ATTEND Internal Medicine Cardiovascular Disease | DX: Z29.89 Encounter for other specified prophylactic measures (principal); Z86.79 Personal history of other diseases of the circulatory system | CPT/HCPCS: 93798 ==